=== PATIENT | female | born 1960 | race Hispanic/Latino ===

== ENCOUNTER 2018-08-17 09:47 | Emergency (ER) | payer BC ==
--- NOTE | 2018-08-17 10:08 | RAD ---
RIGHT WRIST 3 VIEWS: HISTORY: Injury, right wrsit pain FINDINGS/IMPRESSION: There is an angulated fracture involving the distal radial metaphysis. POS: SHAMIKA
[2018-08-17] MEDS ORDERED: Lidocaine 1% (PF) 30 ML VIAL ONE (10:25)
[2018-08-17] MEDS ORDERED: Bupivacaine 0.5% 10 ML VIAL ONE (10:25)
[2018-08-17] MEDS ORDERED: HYDROcodone/Acetaminophen 10/325 mg Tablet ONE (10:29)
[2018-08-17] MEDS ORDERED: Fentanyl 100 MCG/2 ML VIAL ONE (10:55)
[2018-08-17] MEDS ORDERED: Ketamine 50 MG/ML (10ML VIAL) ONE (12:19)
[2018-08-17] MEDS ORDERED: Ondansetron PF 4 MG/2 ML Vial ONE (12:23)
--- NOTE | 2018-08-17 13:01 | RAD ---
RIGHT WRIST 2 VIEWS: HISTORY: Distal radial fracture post reduction. FINDINGS/IMPRESSION: There has been interval reduction of the angulated distal radial fracture since earlier exam of 9:59 a.m. A cast has been placed. POS: GEORGE
== END 2018-08-17 14:24 | disposition home or self-care (01) ==
LOC: ERS 09:47
DX: S52.501A Unspecified fracture of the lower end of right radius, initial encounter for closed fracture (principal); F32.9 Major depressive disorder, single episode, unspecified; F17.210 Nicotine dependence, cigarettes, uncomplicated; E78.5 Hyperlipidemia, unspecified; I10 Essential (primary) hypertension; Z71.6 Tobacco abuse counseling; Z79.891 Long term (current) use of opiate analgesic; Z79.899 Other long term (current) drug therapy; W01.0XXA Fall on same level from slipping, tripping and stumbling without subsequent striking against object, initial encounter
CPT/HCPCS: 25605; 99152; 99406; J2001; J2405; J3010; J3490

== ENCOUNTER 2018-11-05 13:01 | Outpatient (CLI) | payer OTHER ==
--- NOTE | 2018-11-07 08:43 | CT ---
EXAM: CT calcium score HISTORY: Hypertension and hypercholesterolemia COMPARISON: None TECHNIQUE: Multiple contiguous axial images were obtained a CT of the heart without contrast. FINDINGS: The CT images show no suspicious pulmonary nodules. No hilar or mediastinal lymphadenopathy are seen. The patient's total Agatston calcium score is 0. IMPRESSION: Negative test. Findings are consistent with a low risk of having a cardiovascular event i n the next 5 years.
== END 2018-11-05 13:02 | disposition home or self-care (01) ==
LOC: BICCT 13:01
PROVIDERS: ATTEND Family Medicine
DX: Z82.49 Family history of ischemic heart disease and other diseases of the circulatory system (principal)
CPT/HCPCS: 75571

== ENCOUNTER 2019-02-20 19:54 | Inpatient (IN) | payer BC ==
[2019-02-20] MEDS ORDERED: Fentanyl 100 MCG/2 ML VIAL ONE (20:37)
[2019-02-20] MEDS ORDERED: Ondansetron PF 4 MG/2 ML Vial ONE (20:37)
[2019-02-20 20:52] LABS: Hemoglobin 14.3 g/dL (12.0-16.0); Mean Corpuscular Hemoglobin 33.5 pg (27.0-31.0); Mean Corpuscular Volume 93.1 fL (78.0-98.0); RBC Distribution Width 11.2 % (11.5-14.5); Red Blood Cell (RBC) Count 4.27 mill/uL (4.20-5.40)
[2019-02-20 21:00] LABS: ALT (SGPT) 36 U/L (8-55); AST (SGOT) 53 U/L (5-34); Albumin 4.2 g/dL (3.5-5.0); Alkaline Phosphatase 108 U/L (40-110); Anion Gap 14 mmol/L (10-20); BUN (Urea Nitrogen) 6 mg/dL (9.8-20.1); Bilirubin, Total 0.3 mg/dL (0.2-1.2); Calc. Creatinine Clearance 0 mL/min (70-130); Carbon Dioxide 24 mmol/L (22-29); Chloride 89 mmol/L (98-107); Estimated GFR-MDRD 90; Globulin 2.6 g/dL (2.4-3.5); Glucose 87 mg/dL (70-105); Lipase 62 U/L (8-78); Potassium 3.3 mmol/L (3.5-5.1); Protein, Total 6.8 g/dL (6.0-8.3); Sodium 124 mmol/L (136-145)
[2019-02-20 21:11] LABS: Band 4 % (5-11); Lymphocytes 44 % (21-51); MDiff Complete? YES; Mean Platelet Volume 6.3 fL (7.4-10.4); Monocytes 15 % (0-10); Neutrophil 37 % (42-75); Platelet Count 229 thou/uL (130-400); White Blood Cell (WBC) Count 2.7 thou/uL (4.8-10.8)
[2019-02-20 21:59] LABS: Bilirubin Negative (Negative); Blood, Urine Trace (Negative); Clarity Clear (Clear); Glucose, Urine (Dipstick) Normal (Negative); Leukocyte Negative Leu/uL (Negative); Nitrite Negative (Negative); Pregnancy Test - Urine (BHCG) Negative (Negative); Pregu Control Background? CLEAR/WHITE (CLR/WHITE); Pregu Control Bar Appear? YES (CONTROL BAR); Protein, Urine (Dipstick) 30 mg/dL (Neg-Trace); Specific Gravity 1.015 (1.002-1.036); Squamous Epithelial 0-3 HPF (0-3); Urobilinogen Normal mg/dL (Less than 2)
[2019-02-20 22:06] LABS: Bacteria/HPF Rare-Few HPF (None Seen)
[2019-02-20 22:07] LABS: Yeast-Budding Rare HPF (None Seen)
--- NOTE | 2019-02-20 22:44 | CT ---
CT ABDOMEN AND PELVIS WITH IV CONTRAST: 02/20/19 INDICATIONS: Abdominal pain. FINDINGS: The lung bases are clear. Liver, spleen, pancreas unremarkable. There is tiny low density focus in the inferior right lobe of the liver measuring approximately 1 cm suggesting tiny hepatic cyst. Stomach and duodenum unremarkabl e. Adrenal glands and kidneys unremarkable. Urinary bladder unremarkable although pelvis is obscured by artifact from the left hip prosthesis. Small bowel loops show nonspecific distention in the proximal and mid jejunal loops. The ileal loops appear unremarkable. There is mild fold thickening in the mid jejunal loops of uncertain significanc e. Appendix is not definitely identified. The colon is unremarkable. No CT evidence of diverticulitis id entified. There are scattered diverticula in the sigmoid colon. The sigmoid colon is poorly evaluated due to the spray artifact from the left hip prosthesis. Aorta is normal caliber. Review of the musculature shows asymmetric enlargement of the right rectus abdominis muscle. There i s heterogeneity in this muscle and findings suggest an intramuscular hematoma. IMPRESSION: 1. Asymmetric enlargement of the right rectus abdominis muscle. Intramuscular hematoma is suspec ben. 2. No acute intra-abdominal process. Nonspecific distention and fold thickening of the proximal and mid jejunal loops. Ileal loops appear unremarkable. 3. No definite CT evidence of diverticulitis. POS: [facility]
[2019-02-20] MEDS ORDERED: Sodium Chloride 0.9% 1,000 ML IV SCH (23:45)
[2019-02-20] MEDS ORDERED: Loperamide HCl 2 MG CAP PO PRN (23:52)
[2019-02-20] MEDS ORDERED: Calcium Carbonate 500 MG ChewTAB PO PRN (23:52)
[2019-02-20] MEDS ORDERED: Acetaminophen 325 MG TAB PO PRN (23:52)
[2019-02-20] MEDS ORDERED: hydrALAZINE 20 MG/ML VIAL SLOW IVP PRN (23:54)
[2019-02-20] MEDS ORDERED: Lorazepam 2 MG/ML VIAL SLOW IVP PRN (23:54)
[2019-02-21] MEDS ORDERED: Amlodipine 10 MG TAB PO SCH (00:15)
[2019-02-21 00:22] LABS: PTT 34.3 SEC (22.9-36.1); Prothrombin Time 13.2 SEC (12.0-14.7)
--- NOTE | 2019-02-21 00:43 | HP ---
PRESENTING COMPLAINT: Abdominal pain. HISTORY OF PRESENT ILLNESS: Ba Morgan is a 58-year-old female with history of hypertension, on lisinopril, who had a recent episode of cough with onset of diarrhea. She developed sudden onset abdominal pain after an episode of cough. Pain has been more of a crampy, nonradiating, located over the lower abdomen. Pain has been associated with nausea. The patient denies any overt vomiting. She admits to high free water intake since the last 3 days due to the nausea and decreased p.o. intake. She states she has history of hyponatremia in the past, but that resolved. She is currently taking her lisinopril, last dose she used was yesterday. She was seen by PCP yesterday and started on antibiotics for presumed diverticulitis. CT scan today shows no evidence of diverticulitis. She is unsure of home antibiotics regimen. Diarrhea has since resolved prior to onset of antibiotics use. PAST MEDICAL HISTORY: Significant for hypertension, hyperlipidemia, anxiety/depression. SOCIAL HISTORY: The patient admits to tobacco use. She smokes about a pack a day. Denies any history of any illicit drug use or alcohol abuse. She resides in the community. She is functional at baseline. HOME MEDICATIONS: See medication list, full list pending. She states her medications include lisinopril. FAMILY HISTORY: No history of CAD or CVA. REVIEW OF SYSTEMS: All systems reviewed, x14 negative. PHYSICAL EXAMINATION: CURRENT VITAL SIGNS: Blood pressure of 165/88, pulse of 90, respiratory rate of 18, O2 saturation 95% on room air, temperature afebrile. GENERAL: Thin built middle-aged female, slightly anxious, not in any acute pain or distress. HEENT: Head is atraumatic and normocephalic. Pupils equal, reactive to light. Dry oral mucosa. NECK: No JVD. No carotid bruit. RESPIRATORY: Good air entry. No crepitation. CARDIOVASCULAR: S1 and S2. Rate and rhythm regular. ABDOMEN: Mild nonspecific tenderness over lower abdominal area. No suprapubic fullness. RECTAL: Deferred. EXTREMITIES: No pedal edema. No calf tenderness. NEUROLOGICAL: The patient is alert, conversant. LABORATORY DATA: Sodium 124, potassium 3.3, chloride 89, creatinine 0.6. AST and alkaline phosphatase normal. Urinalysis shows 4-6 rbc and wbc. Serum WBC 2.7, hemoglobin , platelets 229, bands of 4%. Abdominal CT shows rectus abdominis hematoma, nonspecific dilatation of the jejunum. No evidence of diverticulitis. IMPRESSION: 1. Rectus sheath abdominal hematoma with associated abdominal pain, uncontrolled. 2. Hyponatremia, likely due to decreased p.o. intake with associated lisinopril use in setting of excess free water intake. 3. Hypokalemia. PLAN: We will obtain the patient's full medication list. We will the patient admit the patient to observation and manage for the followin. Abdominal sheath hematoma. We will continue pain regimen for now. We start naproxen for better pain control in addition to p.r.n. morphine. We do bed rest for now. We will obtain PT, INR to rule out bleeding coagulopathy. Abdominal muscle hematoma may be due to recent coughing episodes. We will follow. 2. Hyponatremia, likely due to volume depletion and lisinopril use. We will obtain home medication to rule out associated SSRI use. Obtain urine sodium and creatinine as well as uric acid. We will start gentle IV fluid with normal saline and potassium now. We will monitor BMP q.4 to avoid over correction target of sodium of about 10 over the next 24 hours. 3. Hypokalemia. We will replete. 4. Chronic tobacco use. Start nicotine patch. Physician advice. 5. Advanced directive, the patient is full code. 6. DVT prophylaxis. We will do SCDs. No systemic heparin for now. Job ID: [id number]
[2019-02-21 00:57] VITALS: BMI 21.5
[2019-02-21] MEDS ORDERED: Potassium Phosphate 30 MMOL in Sodium Chloride 0.9% 500 ML IVPB SCH (01:00)
[2019-02-21] MEDS: Nicotine 14 MG PATCH TD SCH (01:20)
[2019-02-21] MEDS: NS 0.9% w/ 20 MEQ KCL 1,000 ML/1,000 ML BAG IV SCH ×2 (01:20→15:09)
[2019-02-21] MEDS: Morphine 2 MG/ML SYRINGE SLOW IVP PRN ×3 (02:17→12:26)
[2019-02-21] MEDS: Ondansetron PF 4 MG/2 ML Vial IVP PRN ×3 (02:21→18:40)
[2019-02-21 05:57] LABS: Hemoglobin 12.7 g/dL (12.0-16.0); Mean Corpuscular HGB CONC 34.8 g/dL (32.0-36.0); Mean Corpuscular Hemoglobin 32.7 pg (27.0-31.0); Mean Corpuscular Volume 94.1 fL (78.0-98.0); Mean Platelet Volume 6.4 fL (7.4-10.4); Platelet Count 212 thou/uL (130-400); RBC Distribution Width 11.3 % (11.5-14.5); Red Blood Cell (RBC) Count 3.89 mill/uL (4.20-5.40); White Blood Cell (WBC) Count 2.8 thou/uL (4.8-10.8)
[2019-02-21 06:03] LABS: Anion Gap 13 mmol/L (10-20); BUN (Urea Nitrogen) 4 mg/dL (9.8-20.1); Calc. Creatinine Clearance 82 mL/min (70-130); Calcium 8.4 mg/dL (7.8-10.44); Carbon Dioxide 24 mmol/L (22-29); Chloride 95 mmol/L (98-107); Estimated GFR-MDRD Greater than 90; Glucose 81 mg/dL (70-105); Potassium 3.5 mmol/L (3.5-5.1); Sodium 128 mmol/L (136-145)
[2019-02-21 07:03] LABS: Band 8 % (5-11); Lymphocytes 41 % (21-51); MDiff Complete? YES; Monocytes 10 % (0-10); Neutrophil 41 % (42-75); RBC Morphology Normal
[2019-02-21] MEDS: Amlodipine 10 MG TAB PO SCH (09:01)
[2019-02-21] MEDS: Naproxen 500 MG TAB PO SCH ×2 (09:01→16:44)
[2019-02-21] MEDS: Famotidine 20 MG TAB PO SCH ×2 (09:01→20:02)
[2019-02-21 14:05] LABS: Anion Gap 10 mmol/L (10-20); BUN (Urea Nitrogen) Less than 4 mg/dL (9.8-20.1); Calc. Creatinine Clearance 98 mL/min (70-130); Calcium 8.1 mg/dL (7.8-10.44); Carbon Dioxide 26 mmol/L (22-29); Chloride 94 mmol/L (98-107); Estimated GFR-MDRD Greater than 90; Glucose 83 mg/dL (70-105); Potassium 3.4 mmol/L (3.5-5.1); Sodium 127 mmol/L (136-145)
--- NOTE | 2019-02-21 14:24 | PDOC.HOSPP ---
- Subjective Encounter Date: 02/21/19 Encounter Time: 14:23 Subjective: Ms. Cosme was seen today in follow-up of hyponatremia, and abdominal pain. She notes continues lower abdominal pain, she says it is not relieved with the current dose of Morphine. She is requesting Fentanyl. - Objective Vital Signs & Weight: Vital Signs (12 hours) Temp Pulse Resp BP BP Pulse Ox 02/21/19 11:44 98.5 F 71 18 156/88 H 90 L 02/21/19 09:01 67 137/77 02/21/19 07:35 98.7 F 67 18 137/77 93 L 02/21/19 04:00 98.1 F 81 18 158/89 H 96 Weight Admit Weight 118 lb Weight 118 lb I&O: 02/20/19 02/21/19 02/22/19 06:59 06:59 06:59 Intake Total 2470 120 Balance 2470 120 Result Diagrams: 02/21/19 05:19 02/21/19 13:32 Hospitalist ROS - Medication Medications: Active Medications Generic Name Dose Route Start Last Admin Trade Name Freq PRN Reason Stop Dose Admin Amlodipine Besylate 10 mg 02/21/19 09:00 02/21/19 09:01 Norvasc PO 10 mg DAILY COSTA Administration Famotidine 20 mg 02/21/19 09:00 02/21/19 09:01 Pepcid PO 20 mg BID COSTA Administration Potassium Chloride/Sodium Chloride 1,000 ml in 1,000 mls @ 75 mls/hr 02/21/19 00:15 02/21/19 01:20 Ns 0.9% W/ 20 Meq Kcl IV 1,000 mls .[id number] COSTA Administration Morphine Sulfate 2 mg 02/20/19 23:54 02/21/19 12:26 Morphine SLOW IVP 2 mg Q4H PRN Administration Moderate to Severe Pain (6-10) Naproxen 500 mg 02/21/19 08:00 02/21/19 09:01 Naprosyn PO 500 mg BID-WM COSTA Administration Nicotine 14 mg 02/21/19 01:00 02/21/19 01:20 Nicoderm Patch TD 14 mg 0100 COSTA Administration Ondansetron HCl 4 mg 02/20/19 23:52 02/21/19 11:07 Zofran IVP 4 mg Q6H PRN Administration Nausea/Vomiting - Exam Eye: PERRL Heart: RRR, no murmur, no gallops, no rubs, normal peripheral pulses Respiratory: CTAB, no wheezes, no rales, no ronchi, normal chest expansion, no tachypnea, normal percussion Gastrointestinal: soft, non-distended, normal bowel sounds, no hepatomegaly, no splenomegaly, no guarding, no rigidity, tender to palpation (+ suprapubic tenderness) Extremities: no cyanosis, no edema Hosp A/P (1) Abdominal pain Code(s): R10.9 - UNSPECIFIED ABDOMINAL PAIN Status: Acute (2) Hyponatremia Code(s): E87.1 - HYPO-OSMOLALITY AND HYPONATREMIA Status: Acute (3) Hypertension Code(s): I10 - ESSENTIAL (PRIMARY) HYPERTENSION Status: Chronic (4) Hyperlipidemia Code(s): E78.5 - HYPERLIPIDEMIA, UNSPECIFIED Status: Chronic - Plan * Abdominal Pain- due to abdominal wall hematoma- continue conservative care * Hyponatremia-will check serum and urine osmolallity to help determine the cause * Continue IV saline * Advance diet * HTN- blood pressure isbit elevated- continue Amlodipine, and Hydralazine as needed * Hopefully home soon
[2019-02-21] MEDS: Morphine 4 MG/ML VIAL SLOW IVP PRN (20:02)
[2019-02-22] MEDS: NS 0.9% w/ 20 MEQ KCL 1,000 ML/1,000 ML BAG IV SCH ×2 (00:36→07:59)
[2019-02-22] MEDS: Nicotine 14 MG PATCH TD SCH (00:36)
[2019-02-22] MEDS: Ondansetron PF 4 MG/2 ML Vial IVP PRN ×2 (04:27→10:29)
[2019-02-22 06:01] LABS: Anion Gap 12 mmol/L (10-20); BUN (Urea Nitrogen) Less than 4 mg/dL (9.8-20.1); Calc. Creatinine Clearance 93 mL/min (70-130); Calcium 8.2 mg/dL (7.8-10.44); Carbon Dioxide 24 mmol/L (22-29); Chloride 99 mmol/L (98-107); Estimated GFR-MDRD Greater than 90; Glucose 81 mg/dL (70-105); Potassium 3.4 mmol/L (3.5-5.1); Sodium 132 mmol/L (136-145)
[2019-02-22] MEDS ORDERED: Diabetic Tussin 200 MG/10 ML UDCUP PO PRN (06:27)
[2019-02-22] MEDS: Morphine 4 MG/ML VIAL SLOW IVP PRN (06:55)
[2019-02-22] MEDS: Famotidine 20 MG TAB PO SCH ×2 (07:58→20:10)
[2019-02-22] MEDS: Amlodipine 10 MG TAB PO SCH (07:59)
[2019-02-22] MEDS: Naproxen 500 MG TAB PO SCH ×2 (07:59→16:19)
[2019-02-22] MEDS ORDERED: traMADol HCl 50 MG TAB PO PRN (09:15)
--- NOTE | 2019-02-22 14:36 | PDOC.HOSPP ---
- Subjective Encounter Date: 02/22/19 Encounter Time: 09:00 Subjective: abd pain is better, nausea better as well - Objective Vital Signs & Weight: Vital Signs (12 hours) Temp Pulse Resp BP BP Pulse Ox 02/22/19 11:35 98.1 F 77 18 164/87 H 93 L 02/22/19 07:59 72 168/84 H 02/22/19 07:12 98.4 F 72 18 168/84 H 92 L 02/22/19 04:00 98.2 F 72 18 155/86 H 96 Weight Admit Weight 118 lb Weight 118 lb I&O: 02/21/19 02/22/19 02/23/19 06:59 06:59 06:59 Intake Total 2470 1984 Balance 2470 1984 Result Diagrams: 02/21/19 05:19 02/22/19 05:13 Hospitalist ROS - Medication Medications: Active Medications Generic Name Dose Route Start Last Admin Trade Name Freq PRN Reason Stop Dose Admin Amlodipine Besylate 10 mg 02/21/19 09:00 02/22/19 07:59 Norvasc PO 10 mg DAILY COSTA Administration Famotidine 20 mg 02/21/19 09:00 02/22/19 07:58 Pepcid PO 20 mg BID COSTA Administration Guaifenesin 300 mg 02/22/19 06:27 02/22/19 06:56 Robitussin Sf PO 300 mg Q4H PRN Administration Cough Potassium Chloride/Sodium Chloride 1,000 ml in 1,000 mls @ 75 mls/hr 02/21/19 00:15 02/22/19 07:59 Ns 0.9% W/ 20 Meq Kcl IV 1,000 mls .[id number] COSTA Administration Morphine Sulfate 2 mg 02/20/19 23:54 02/21/19 12:26 Morphine SLOW IVP 2 mg Q4H PRN Administration Moderate to Severe Pain (6-10) Morphine Sulfate 4 mg 02/21/19 14:18 02/22/19 06:55 Morphine SLOW IVP 4 mg Q4H PRN Administration Ear Pain Naproxen 500 mg 02/21/19 08:00 02/22/19 07:59 Naprosyn PO 500 mg BID-WM COSTA Administration Nicotine 14 mg 02/21/19 01:00 02/22/19 00:36 Nicoderm Patch TD 14 mg 0100 COSTA Administration Ondansetron HCl 4 mg 02/20/19 23:52 02/22/19 10:29 Zofran IVP 4 mg Q6H PRN Administration Nausea/Vomiting - Exam General Appearance: awake alert Eye: PERRL, anicteric sclera ENT: no oropharyngeal lesions, moist mucosa Neck: supple, no JVD Heart: RRR, no murmur Respiratory: no wheezes, no rales, no ronchi Gastrointestinal: soft, non-distended, normal bowel sounds, no guarding, no rigidity Extremities: no cyanosis, no edema Neurological: cranial nerve grossly intact, no focal deficits Psychiatric: normal affect, A&O x 3 Hosp A/P (1) rectus abdominis hematoma Status: Acute (2) Abdominal pain Code(s): R10.9 - UNSPECIFIED ABDOMINAL PAIN Status: Acute Qualifiers: Abdominal location: left lower quadrant Qualified Code(s): R10.32 - Left lower quadrant pain (3) Hyponatremia Code(s): E87.1 - HYPO-OSMOLALITY AND HYPONATREMIA Status: Resolved (4) Hyperlipidemia Code(s): E78.5 - HYPERLIPIDEMIA, UNSPECIFIED Status: Chronic (5) Hypertension Code(s): I10 - ESSENTIAL (PRIMARY) HYPERTENSION Status: Chronic Qualifiers: Hypertension type: essential hypertension Qualified Code(s): I10 - Essential (primary) hypertension - Plan hemostable may dc home after evening meal if she tolerates it well with no vomiting needs to ambulate in hallway prior to going home (has left hip arthroplasty with 2 revisions) as tolerated to continue home meds as before, f/u with PCP in 3 -4 days
[2019-02-22] MEDS ORDERED: Ondansetron ODT 4 MG TAB PO PRN (16:16)
[2019-02-22] MEDS ORDERED: Ondansetron ODT 4 MG TAB PO SCH (16:30)
--- NOTE | 2019-02-22 17:59 | CT ---
CT BRAIN 02/22/19 PROVIDED CLINICAL HISTORY: Nausea and headaches. FINDINGS: The ventricular system appears normal in size and morphology. There is no evidence for intracranial h emorrhage or mass effect. The extracranial soft tissues and osseous structures demonstrate an unremar kable CT appearance. IMPRESSION: Normal CT brain. POS: CHRIS
[2019-02-22] MEDS ORDERED: Promethazine HCl 25 MG/ML VIAL SLOW IVP SCH (19:00)
[2019-02-22] MEDS ORDERED: Promethazine HCl 25 MG in Sodium Chloride 0.9% 50 ML IVPB SCH (19:45)
[2019-02-22] MEDS ORDERED: traZODone HCl 150 MG TAB PO SCH (21:00)
[2019-02-23] MEDS: Nicotine 14 MG PATCH TD SCH (00:40)
[2019-02-23] MEDS: NS 0.9% w/ 20 MEQ KCL 1,000 ML/1,000 ML BAG IV SCH (04:57)
[2019-02-23] MEDS: Amlodipine 10 MG TAB PO SCH (07:59)
[2019-02-23] MEDS: Famotidine 20 MG TAB PO SCH (07:59)
[2019-02-23] MEDS: Naproxen 500 MG TAB PO SCH (07:59)
[2019-02-23] MEDS ORDERED: Lisinopril 20 MG TAB PO SCH (09:00)
[2019-02-23] MEDS ORDERED: Ezetimibe 10 MG TAB PO SCH (09:00)
[2019-02-23] MEDS ORDERED: DULoxetine 30 MG CAP PO SCH (09:00)
[2019-02-23 11:54] VITALS: BP 105/72; TEMP 97.9
--- NOTE | 2019-02-23 17:49 | DIS ---
DATE OF ADMISSION: 02/20/2019 DATE OF DISCHARGE: 02/23/2019 DISCHARGE DISPOSITION: Home. PRIMARY DISCHARGE DIAGNOSES: Abdominal pain with intractable nausea and vomiting, resolved; rectus abdominis hematoma, hyponatremia with moderate dehydration on arrival resolved with fluid resuscitation, dyslipidemia, hypertension, tobacco abuse. PROCEDURES DONE DURING HOSPITALIZATION: The patient has had CT of the abdomen and pelvis with IV contrast done showed asymmetric enlargement of right rectus abdominis muscle with intramuscular hematoma suspected. No other acute intra-abdominal process was seen. Nonspecific distention and fold thickening of the proximal and mid jejunal loops were seen. Ileal loops were unremarkable. No CT evidence of diverticulitis. CT brain done showed no acute intracranial abnormality. White count of 2.8, H and H of 12 and 36, platelet count 212 with 41% neutrophils and 41% lymphocytes. PT/INR and PTT within normal limits. Initial sodium levels were 124, discharge numbers are 132; BUN 4; creatinine 0.5; serum bicarb 24; albumin is 4.2; TSH 1.2. Uric acid 6.0. UA showed no signs of urinary tract infection. Urine test was negative. DISCHARGE MEDICATIONS: 1. Duloxetine 90 mg p.o. daily. 2. Zetia 10 mg p.o. daily. 3. Lisinopril 20 mg p.o. daily. 4. Ultram p.r.n. for pain. 5. Trazodone 150 mg p.o. q.h.s. ALLERGIES: ALLERGIC TO CODEINE. DISCHARGE PLAN: The patient to follow up with outpatient gastroenterology consultation in 2 to 3 weeks for likely upper and lower endoscopies. The patient has not had any screening colonoscopies, although she has had stool occult blood done in the past. She needs to follow up with Dr. Horace Ann, her primary care physician in 1 week. The patient would also benefit from outpatient CT screening low-dose CT chest in view of her chronic history of smoking. BRIEF COURSE DURING HOSPITALIZATION: The patient initially got admitted on the with complaints of abdominal pain, nausea, and vomiting. No history of diarrhea. Her initial sodium was low as well. The patient had essentially moderate dehydration with hyponatremia. A CT of the abdomen and pelvis done showed rectus abdominis hematoma on the right lower side. Likely her abdominal pain was from the abdominal wall hematoma. She was fluid resuscitated and her electrolytes have resolved. The patient had some thickening of her small intestines including jejunum on the CAT scan. Likely, the patient might have had a stomach flu, which is reflected in her CBC reversal of lymphocytes and neutrophils. She did not have any diarrhea. Her nausea and vomiting have resolved at the time of discharge and she is tolerating oral solid diet. She would benefit from outpatient endoscopies both upper and lower and phone number for [facility] has been provided to the patient and her . I have given complete updates to the patient's on the phone. She would also benefit from a low-dose CT scan of the chest in view of long history of smoking to see if the cause of her hyponatremia was a mess, which is unclear at present. No workup for the chest has been done during her stay here. Please note, I have seen and examined the patient on the day of discharge. Prior to discharge, the patient is ambulating and mobilizing herself in the hallway. Job ID: [id number]
--- NOTE | 2019-02-24 21:18 | PQF ---
JOSE PERKINS VINAYA KUMAR MD [id number] CLINICAL DOCUMENTATION CLARIFICATION FORM: POST DISCHARGE Addendum to original discharge summary date: ____ Late entry note date: __ DATE: 02/24/19 ATTN: Jerad Malone Please exercise your independent, professional judgment in responding to the clarification form. Clinical indicators are provided on the bottom of this form for your review In your clinical opinion based on clinical findings below, can you please further specify diagnosis of Hematoma if : Please check appropriate box(s): [ ] Traumatic Intramuscular Abdomen [ x] Non-Traumatic Intramuscular Abdomen [ ] Other diagnosis [ ] Unable to determine In addition, please specify: Present on Admission (POA): [ x] Yes [ ] No [ ] Unable to determine For continuity of documentation, please document condition throughout progress notes and discharge summary. Thank You. CLINICAL INDICATORS - SIGNS / SYMPTOMS / LABS H&P p1 02/20 Dr Retana Who had a recent episode of cough with onset of diarrhea. H&P p1 02/20 Dr Retana She developed sudden onset abdominal pain after an episode of cough. Pain has been more of a crampy, nonradiating, located over the lower abdomen. Pain has been associated with nausea. H&P p1 02/20 Dr Retana Abdominal muscle hematoma may be due to recent coughing episodes [employer] H&P p2 02/20 Rectus sheath abdominal hematoma with associated abdominal pain, uncontrolled H&P p2 02/20 Hypokalemia H&P p2 02/20 Hyponatremia TREATMENTS: H&P p2 02/20 Bed rest H&P p2 02/20 Continue pain regimen MAY 14 Naproxen MAY 14 Morphine PRN MAY 14 IV fluids with Normal Saline (This form is maintained as a part of the permanent medical record) 2014 [employer]. All Rights Reserved [email or web address]
== END 2019-02-23 12:20 | disposition home or self-care (01) | DRG 556 ==
LOC: ERS 19:54 → OBSVTOIN 23:35 → T4-A 23:35
PROVIDERS: ADMIT Internal Medicine; ATTEND Internal Medicine
DX: M79.81 Nontraumatic hematoma of soft tissue (principal); E87.1 Hypo-osmolality and hyponatremia; I10 Essential (primary) hypertension; F17.200 Nicotine dependence, unspecified, uncomplicated; E86.0 Dehydration; Z96.642 Presence of left artificial hip joint; F41.9 Anxiety disorder, unspecified; F32.9 Major depressive disorder, single episode, unspecified; E87.6 Hypokalemia; Z79.899 Other long term (current) drug therapy
CPT/HCPCS: 36415; 70450; 74177; 80048; 80053; 81003; 81015; 81025; 82570; 83690; 83930; 83935; 84300; 84443; 84550; 85025; 85610; 85730; 96361; 96374; 96375; J0360; J2270; J2405; J2550; J3010; J3480; J7050; Q0162

== ENCOUNTER 2022-06-27 11:04 | Outpatient (CLI) | payer BC | END 2022-06-27 11:05 | disposition home or self-care (01) | LOC: BICMAMMO 11:04 | PROVIDERS: ATTEND Family Medicine | DX: Z12.31 Encounter for screening mammogram for malignant neoplasm of breast (principal); Z80.3 Family history of malignant neoplasm of breast | CPT/HCPCS: 77063; 77067 ==